=== PATIENT | male | born 1965 | race Two or more races ===

== ENCOUNTER → 2025-05-27 | Outpatient (CLI) | payer BC, SELFPAY ==
--- NOTE | 2025-05-27 16:01 | XR_ITS ---
Examination: Knee, right , 3 views Technique: Knee AP, lateral, oblique 3 views Date and time of exam: May 27, 2025 1611 hrs. Indications: Right knee pain beginning 6 months ago. Findings: Moderate narrowing medial joint space No fracture or dislocation. Mild to moderate narrowing patellofemoral joint Impression: Moderate narrowing medial joint space Mild to moderate narrowing patellofemoral joint
--- NOTE | 2025-05-27 16:01 | XR_ITS ---
Examination: Shoulder,right, 3 views Technique: Shoulder AP internal rotation, AP external rotation, Y view shoulder, 3 views Exam date and time :May 27, 2025 1611 hrs. Indications: Right shoulder pain 6 months. Findings: Mild narrowing glenohumeral joint Mild osteoarthritis acromioclavicular joint. No fracture or shoulder dislocation. 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
== END | disposition home or self-care (01) ==
LOC: SDIM 15:49
PROVIDERS: PCP Physician Assistant; Referring Provider Physician Assistant; Visit Provider Physician Assistant
DX: M19.011 Primary osteoarthritis, right shoulder (principal); M25.861 Other specified joint disorders, right knee
CPT/HCPCS: 73030; 73562

== ENCOUNTER → 2025-07-28 | Outpatient (CLI) | payer BC, SELFPAY ==
--- NOTE | 2025-07-28 10:00 | XR_ITS ---
Exam: MRI knee without contrast, right Date and time of exam: July 28, 2025, 11:30 a.m. Comparison December 29, 2023 INDICATIONS: Anterior knee pain weakness instability joint popping 5 years Technique: Multiple axial, coronal, and sagittal sections on the knee have been obtained. T2-Weighted sagittal, fat-suppressed images, TR 3,500, TE 62, T2 weighted coronal fat-saturated images, TR 3,500, TE 62 Proton density sagittal sections, TR 1800, TE 31. T-1 weighted coronal images, TR 524, TE 13.0 Findings: Medial meniscus anterior horn intact. Medial meniscus, body horizontal linear tear. Posterior horn medial meniscus horizontal linear tear. Lateral meniscus anterior horn is intact Lateral meniscus, body is intact Posterior horn lateral meniscus is intact Anterior cruciate ligament moderate sprain Posterior cruciate ligament appears intact. Knee effusion is small. Quadriceps and patellar tendons appear intact. There is no evidence of tendinosis. Inflammatory change or fracture of Hoffa's fat pad is not seen. Medial patellar facet demonstrates mild thinning. Lateral patellar facet cartilage demonstrates mild thinning. Trochlear cartilage demonstrates mild thinning. Marrow signal adequate. Medial collateral ligament appears intact. No meniscocapsular separation is seen. Illiotibial band and fibular collateral ligament are intact. Biceps femoris tendons appear intact. Medial femoral condylar articular cartilage demonstrates moderate thinning. Lateral femoral condylar articular cartilage demonstrates moderate thinning. Tibial plateau cartilage demonstrates moderate thinning. Impression: Tears of the body and posterior horn medial meniscus Moderate sprain anterior cruciate ligament
--- NOTE | 2025-07-28 10:15 | XR_ITS ---
EXAMINATION: Cervical spine, 5 views Technique: Cervical spine AP, AP odontoid, lateral, bilateral obliques, 5 views Exam date and time: July 28, 2025, 1057 hours INDICATIONS: Neck pain 18 months. FINDINGS: Hepatic alignment cervical vertebral bodies Advanced degenerative disc disease C5-C6 with advanced bilateral neuroforaminal stenosis Intact odontoid No cervical fracture IMPRESSION: Advanced degenerative disc disease C5-C6 with advanced bilateral neuroforaminal stenosis at this level
--- NOTE | 2025-07-28 10:30 | XR_ITS ---
MRI shoulder, right, without contrast. Date and time: July 28, 2025, 1113 hours INDICATIONS: Right shoulder pain decreased range of motion numbness in the shoulder 5 years Technique: Multiple axial, sagittal and coronal sections of the shoulder have been obtained. Siemens high-resolution 1.5 Sanam MRI scanner is utilized. Axial fat-suppressed sections, TR 2350, TE 18 T2-weighted coronal fat-saturated images, TR 3500, TE 7100 T1-weighted coronal images, TR 500, TE 15 T2-weighted sagittal fat-saturated images, TR 3500, TE 57 T1-weighted sagittal sections, TR 504, TE 13. Findings: Supraspinatus tendon insertion is intact. Infraspinatus tendon insertion is intact. Subscapularis insertion is intact. Subscapularis bursa is not seen. Long head of the biceps is in the bicipital groove. No definite tear of the biceps superior labral anchor is seen. Retraction of the musculotendinous junction of the rotator cuff is not seen . Tendinosis pattern is moderate. Distance between the acromium and humeral head is 8.5 mm Atrophy of the supraspinatus muscle is mild . Atrophy of the infraspinatus muscle is not seen. Sagittal sections demonstrate a horizontal acromion. Acromioclavicular joint demonstrates moderate osteoarthritis. Osacromiale is not identified. Anterior superior labral tears. Bony glenoid fossa on the sagittal sections does not demonstrate osseous defect. Occult fracture or area of avascular necrosis is not seen. Acromioclavicular joint separation is not visible. Defect in the posterolateral margin of the humeral head is not seen Impression: Rotator cuff intact Anterior superior labral tears
== END | disposition home or self-care (01) ==
PROVIDERS: PCP Physician Assistant; Referring Provider Physician Assistant; Visit Provider Physician Assistant
DX: M50.322 Other cervical disc degeneration at C5-C6 level (principal); M48.02 Spinal stenosis, cervical region; S43.431A Superior glenoid labrum lesion of right shoulder, initial encounter; S83.241A Other tear of medial meniscus, current injury, right knee, initial encounter; S83.511A Sprain of anterior cruciate ligament of right knee, initial encounter; X58.XXXA Exposure to other specified factors, initial encounter
CPT/HCPCS: 72050; 73221; 73721